=== PATIENT | female | born 1995 | race Caucasian/White ===

== ENCOUNTER 2019-10-30 05:30 | Inpatient (IN) | payer BC ==
[2019-10-30] MEDS ORDERED: Lactated Ringer's 1,000 ML IV SCH (07:00)
[2019-10-30] MEDS ORDERED: Lidocaine 1% (PF) 30 ML VIAL SC PRN ×2 (07:00→16:15)
[2019-10-30] MEDS ORDERED: hydrALAZINE 20 MG/ML VIAL SLOW IVP PRN ×2 (07:00→18:13)
[2019-10-30] MEDS ORDERED: Ibuprofen 800 MG TAB PO PRN ×2 (07:00→16:15)
[2019-10-30] MEDS ORDERED: NS w/ Oxytocin 10 units 500 ML IV SCH (07:00)
[2019-10-30] MEDS ORDERED: Ondansetron PF 4 MG/2 ML Vial IVP PRN ×3 (07:00→18:13)
[2019-10-30] MEDS ORDERED: Butorphanol Tartrate 1 MG/ML VIAL SLOW IVP PRN (07:00)
[2019-10-30] MEDS ORDERED: Promethazine HCl 25 MG/ML VIAL IM PRN ×3 (07:00→18:13)
[2019-10-30] MEDS ORDERED: HYDROcodone/Acetaminophen 5/325 mg Tablet PO PRN ×3 (07:00→18:13)
[2019-10-30] MEDS: Lactated Ringer's 1,000 ML IV SCH ×3 (07:28→20:03)
[2019-10-30 07:45] LABS: Hemoglobin 10.8 g/dL (12.0-16.0); Mean Corpuscular Hemoglobin 27.7 pg (27.0-31.0); Mean Corpuscular Volume 81.4 fL (78.0-98.0); Mean Platelet Volume 10.5 fL (7.4-10.4); Platelet Count 202 thou/uL (130-400); RBC Distribution Width 13.1 % (11.5-14.5); Red Blood Cell (RBC) Count 3.91 mill/uL (4.20-5.40); White Blood Cell (WBC) Count 8.8 thou/uL (4.8-10.8)
[2019-10-30 08:28] LABS: HBSAg Index 0.23 S/CO (0-0.99); Hep B Surf Ag Non-Reactive S/CO (NonReactive); Syphilis Antibody Nonreactive (Nonreactive); Syphilis Antibody Index 0.04 S/CO (<1.00 Non-Reactive)
[2019-10-30] MEDS ORDERED: Bupivacaine 0.25% HCL 30 ML VIAL ONE (09:50)
[2019-10-30] MEDS ORDERED: Fentanyl 4 mcg/Bup 0.1% Cadd 100 ML ONE (10:14)
[2019-10-30] MEDS ORDERED: Acetaminophen 325 MG TAB PO PRN (10:46)
[2019-10-30] MEDS ORDERED: diphenhydrAMINE 50 MG/ML VIAL IVP PRN (10:46)
[2019-10-30] MEDS ORDERED: Lactated Ringer's 500 ML IV PRN (10:46)
[2019-10-30] MEDS ORDERED: Naloxone HCl 0.4 mg/ml Vial IVP PRN ×2 (10:46)
[2019-10-30] MEDS ORDERED: Fentanyl 4 mcg/Bupivacaine 0.1% Cassette 100 ML EPIDURAL SCH (11:00)
[2019-10-30] MEDS ORDERED: Communication Order-Pharmacy FS SCH (11:00)
[2019-10-30 13:03] VITALS: BMI 35.1
[2019-10-30] MEDS: NS / Oxytocin 40 units/1000ml 1,000 ML IV PRN ×2 (15:05→16:26)
--- NOTE | 2019-10-30 15:33 | PDOC.EVN ---
Event Note - Event Note Event Note: elevated post bleed noted about 20 min after delivery. re exploration vaginally revealed retained membranes in JOSE M removed with good fundal tone and decreased bleeding. will obs. able to paplpate entire cavity with no retained pocs noted.
[2019-10-30] MEDS ORDERED: Misoprostol 200 MCG TAB ONE (16:11)
[2019-10-30] MEDS ORDERED: NS / Oxytocin 40 units/1000ml 1,000 ML IV PRN (16:15)
[2019-10-30] MEDS ORDERED: Milk Of Magnesia 30 ML UDCUP PO PRN (18:13)
[2019-10-30] MEDS ORDERED: NS / Oxytocin 40 units/1000ml 1,000 ML IV SCH (18:13)
[2019-10-30] MEDS ORDERED: diphenhydrAMINE 25 MG CAP PO PRN (18:13)
[2019-10-30] MEDS ORDERED: Preparation H Ointment 57 gram tube RC PRN (18:13)
[2019-10-30] MEDS ORDERED: Benzocaine-Menthol 82.5 ML CAN TOP PRN (18:13)
[2019-10-30] MEDS ORDERED: Bisacodyl 10 MG SUPP PR PRN (18:13)
[2019-10-30] MEDS ORDERED: Lanolin Ointment 7 GM TUBE TOP PRN (18:13)
[2019-10-30] MEDS: Docusate Calcium (SURFAK) 240 MG CAP PO SCH (20:45)
[2019-10-30] MEDS: HYDROcodone/Acetaminophen 5/325 mg Tablet PO PRN (20:46)
[2019-10-30] MEDS: Ibuprofen 800 MG TAB PO SCH (23:57)
[2019-10-31] MEDS: HYDROcodone/Acetaminophen 5/325 mg Tablet PO PRN (04:39)
[2019-10-31] MEDS: Ibuprofen 800 MG TAB PO SCH ×3 (06:04→21:46)
[2019-10-31] MEDS ORDERED: Measles/Mumps/Rubella 10 MCG/0.5 ML VIAL SC ONE (09:00)
[2019-10-31] MEDS ORDERED: Varicella virus, LIVE 0.5 ML VIAL SC ONE (09:00)
[2019-10-31] MEDS ORDERED: Adacel (T-DAP) 0.5 ML SYRINGE IM ONE (09:00)
[2019-10-31] MEDS: Docusate Calcium (SURFAK) 240 MG CAP PO SCH ×2 (10:13→21:46)
[2019-10-31] MEDS: Prenatal Vitamin 1 TAB PO SCH (10:13)
[2019-10-31 20:11] VITALS: TEMP 97.7
[2019-11-01] MEDS: Ibuprofen 800 MG TAB PO SCH ×2 (06:11→14:06)
[2019-11-01 08:24] VITALS: BP 110/56
[2019-11-01] MEDS: Prenatal Vitamin 1 TAB PO SCH (09:26)
[2019-11-01] MEDS: Docusate Calcium (SURFAK) 240 MG CAP PO SCH (09:26)
== END 2019-11-01 15:35 | disposition home or self-care (01) | DRG 806 ==
LOC: L&D 06:24 → 3SW 18:08
PROVIDERS: ADMIT Obstetrics & Gynecology; ATTEND Obstetrics & Gynecology
PROC: 10E0XZZ Delivery of Products of Conception, External Approach (ICD-10-PCS; principal; 2019-10-30)
PROC: 10907ZC Drainage of Amniotic Fluid, Therapeutic from Products of Conception, Via Natural or Artificial Opening (ICD-10-PCS; 2019-10-30)
PROC: 0KQM0ZZ Repair Perineum Muscle, Open Approach (ICD-10-PCS; 2019-10-30)
PROC: 3E0P7VZ Introduction of Hormone into Female Reproductive, Via Natural or Artificial Opening (ICD-10-PCS; 2019-10-30)
PROC: 3E033VJ Introduction of Other Hormone into Peripheral Vein, Percutaneous Approach (ICD-10-PCS; 2019-10-30)
DX: O98.52 Other viral diseases complicating childbirth (principal); O72.2 Delayed and secondary postpartum hemorrhage; Z37.1 Single stillbirth; O70.1 Second degree perineal laceration during delivery; Z3A.39 39 weeks gestation of pregnancy; B00.9 Herpesviral infection, unspecified
CPT/HCPCS: 36415; 51702; 85027; 86780; 86850; 86900; 86901; 87340; J2590; S0020